=== PATIENT | female | born 1950 | race Caucasian/White ===

== ENCOUNTER → 2023-09-02 | Outpatient (CLI) | payer MEDICARE ==
[~2023-09-02] MED LIST: ASPI-556 PO; ATOR40TA69 PO; CARAL PO; CYAN250014 PO; ESOM40CA PO; RANI300C PO
== END | disposition home or self-care (01) ==
LOC: CANSCHCLI → RAH 08:33
PROVIDERS: ATTEND Internal Medicine Gastroenterology
DX: K21.9 Gastro-esophageal reflux disease without esophagitis (principal); R13.10 Dysphagia, unspecified
CPT/HCPCS: 74220

== ENCOUNTER → 2024-01-05 | Outpatient (CLI) | payer MEDICARE ==
[2024-01-05 10:26] LABS: CREATININE 0.9 mg/dL (0.5-1.0)
== END | disposition home or self-care (01) ==
LOC: RAH 08:12
PROVIDERS: ATTEND Internal Medicine Gastroenterology
DX: R13.12 Dysphagia, oropharyngeal phase (principal); R63.30 Feeding difficulties, unspecified; R93.3 Abnormal findings on diagnostic imaging of other parts of digestive tract; R11.0 Nausea; R10.10 Upper abdominal pain, unspecified
CPT/HCPCS: 36415; 74230; 82565; 84520; 92611

== ENCOUNTER → 2024-01-18 | Outpatient (CLI) | payer MEDICARE ==
[~2024-01-18] MED LIST changes: +IOHEXOL-350 75 ML VIAL IV ONE
== END | disposition home or self-care (01) ==
LOC: RAH 07:55
PROVIDERS: ATTEND Internal Medicine
DX: K80.10 Calculus of gallbladder with chronic cholecystitis without obstruction (principal); N32.89 Other specified disorders of bladder; K43.9 Ventral hernia without obstruction or gangrene; K82.8 Other specified diseases of gallbladder; M47.815 Spondylosis without myelopathy or radiculopathy, thoracolumbar region; K46.9 Unspecified abdominal hernia without obstruction or gangrene; R10.10 Upper abdominal pain, unspecified; R11.0 Nausea
CPT/HCPCS: 74178; Q9967

== ENCOUNTER → 2024-02-21 | Outpatient (CLI) | payer MEDICARE ==
[~2024-02-21] MED LIST changes: -IOHEXOL-350 75 ML VIAL IV ONE
--- NOTE | 2024-02-21 14:02 | HMCIMG ---
CHEST 2VWS REASON: HYPERLIPDEMIA COMPARISON: None FINDINGS: Two views of the chest were obtained. Lungs are clear. Heart size is normal. There is no pulmonary vascular congestion. Mediastinum and bony thorax appear unremarkable. Aortic valve prosthesis is noted. IMPRESSION: 1. No acute process seen in the chest.
== END | disposition home or self-care (01) ==
LOC: RAH 12:52
PROVIDERS: ATTEND Internal Medicine
DX: E78.5 Hyperlipidemia, unspecified (principal); Z72.4 Inappropriate diet and eating habits; Z95.2 Presence of prosthetic heart valve
CPT/HCPCS: 71046